=== PATIENT | male | born 1960 | race Caucasian/White ===

== ENCOUNTER 2018-05-04 05:54 | Observation (INO) | payer OTHER ==
[2018-05-04] MEDS ORDERED: LIDOCAINE 1% 2 ML INJ ID PRN (06:01)
[2018-05-04] MEDS ORDERED: LR 1,000 ML IV ONE (06:01)
[2018-05-04] MEDS ORDERED: BUPIVACAINE/EPI 0.25% 30 ML SDV ONE (06:40)
--- NOTE | 2018-05-04 07:00 | PDANEPAE ---
ANE Past Medical History - Cardiovascular History Hx Hypertension: No Hx Arrhythmias: No Hx Chest Pain: No Hx Coronary Artery / Peripheral Vascular Disease: No Hx CHF / Valvular Disease: No Hx Palpitations: No - Pulmonary History Hx COPD: No Hx Asthma/Reactive Airway Disease: No Hx Recent Upper Respiratory Infection: No Hx Oxygen in Use at Home: No Hx Sleep Apnea: No Sleep Apnea Screening Result - Last Documented: Positive Pulmonary History Comment: IAN TRIGGERS NO FORMAL DX - Neurologic History Hx Cerebrovascular Accident: No Hx Seizures: No Hx Dementia: No - Endocrine History Hx Diabetes: No - Renal History Hx Renal Disorders: No - Liver History Hx Hepatic Disorders: No - Neurological & Psychiatric Hx Hx Neurological and Psychiatric Disorders: No - Cancer History Hx Cancer: No - Congenital Disorder History Hx Congenital Disorders: No - GI History Hx Gastrointestinal Disorders: No - Other Health History Other Health History: WEARS GLASSES - Chronic Pain History Chronic Pain: No - Surgical History Prior Surgeries: RT KNEE ACL ANE Review of Systems Review of Systems: - Exercise capacity METS (RN): 4 METS ANE Patient History - Allergies Allergies/Adverse Reactions: midazolam [From Versed] Allergy (Verified 04/19/18 09:49) Vomiting - Home Medications Home Medications: NK [No Known Home Meds] 04/19/18 [Last Taken Unknown] - NPO status NPO Since - Liquids (Date): 05/03/18 NPO Since - Liquids (Time): 20:00 NPO Since - Solids (Date): 05/03/18 NPO Since - Solids (Time): 19:00 - Smoking Hx Smoking Status: Never smoked ANE Labs/Vital Signs - Vital Signs Blood Pressure: 120/88 Heart Rate: 68 Respiratory Rate: 18 O2 Sat (%): 92 Height: 167.64 cm Weight: 82.554 kg ANE Physical Exam - Airway Mallampati Score: Class 2 - ASA Status ASA Status: I ANE Anesthesia Plan Anesthesia Plan: general endotracheal anesthesia
[2018-05-04] MEDS ORDERED: fentaNYL 100 MCG/2 ML INJ ONE ×4 (07:10→09:54)
[2018-05-04] MEDS ORDERED: PROPOFOL 200 MG/20 ML VIAL ONE (07:10)
[2018-05-04] MEDS ORDERED: ceFAZolin 2 GM/DEXTROSE 100 ML IV ONE (07:18)
[2018-05-04] MEDS ORDERED: ONDANSETRON 4 MG/2 ML VIAL ONE (07:20)
[2018-05-04] MEDS ORDERED: ROCURONIUM 50 MG/5 ML VIAL ONE (07:20)
[2018-05-04] MEDS ORDERED: METOCLOPRAMIDE 10 MG/2 ML VIAL ONE (07:20)
[2018-05-04] MEDS ORDERED: DEXAMETHASONE 4 MG/ML VIAL ONE ×2 (07:20)
--- NOTE | 2018-05-04 07:20 | PDHPUP ---
History & Physical Update H&P update statement: This history and physical update is based on an assessment of the patient which was completed after admission or registration (within 24 hours), but prior to the surgery/procedure. H&P update: H&P reviewed & patient examined, no change in patient's condition since H&P completed
[2018-05-04] MEDS ORDERED: LABETALOL HCL 5 MG/ML 20 ML MDV ONE (07:58)
[2018-05-04] MEDS ORDERED: ONDANSETRON 4 MG/2 ML VIAL IVP PRN (08:43)
[2018-05-04] MEDS ORDERED: D5W LR 1,000 ML IV SCH (08:45)
--- NOTE | 2018-05-04 08:47 | POSTOPPROG ---
Post Op Note Date of Operation: 05/04/18 Surgeon: Ankush Borges Anesthesiologist: Marina Pre-op Diagnosis: IAN, tonsil hypertrophy Post-op Diagnosis: same Indication: IAN Procedure: Tonsillectomy, UPPP Findings: Larger tonsils and long soft palate Inf/Abcess present in the surg proc area at time of surgery?: No Depth: Deep Incisional (Fascial) EBL: Minimal Complications: none
[2018-05-04] MEDS ORDERED: PROMETHAZINE HCL 25 MG/ML INJ IVP PRN (08:50)
[2018-05-04] MEDS ORDERED: LR 500 ML IV PRN (08:50)
[2018-05-04] MEDS ORDERED: NALOXONE HCL 0.4 MG/ML INJ IVP PRN (08:50)
--- NOTE | 2018-05-04 08:51 | POSTANESTH ---
Post Anesthetic Evaluation Cardiovascular Status: Normal, Stable Respiratory Status: Normal, Stable Level of Consciousness/Mental Status: Can Participate in Eval Pain Control: Adequate, Prn Tx Ordered Nausea/Vomiting Control: Adequate, Prn Tx Ordered Complications Possibly Related to Anesthesia: None Noted
[2018-05-04] MEDS: fentaNYL 100 MCG/2 ML INJ IVP PRN ×4 (09:00→09:55)
[2018-05-04] MEDS: HYDROCOD/APAP 7.5/325 IN 15ML UDCUP PO PRN ×3 (10:40→19:40)
--- NOTE | 2018-05-04 18:15 | SOAPPROG ---
SOAP Progress Note Assessment/Plan: Assessment: pt with expected pain Plan: obs over night Likely dc in the am 05/04/18 18:14 Subjective: Pt complains of pain.. Objective: Vital Signs Temp Pulse Resp BP Pulse Ox 36.8 C 103 H 12 135/88 H 91 L 05/04/18 15:47 05/04/18 15:47 05/04/18 15:47 05/04/18 15:47 05/04/18 15:47 05/03/18 05/04/18 05/05/18 05:59 05:59 05:59 Intake Total 1050 Output Total 5 Balance 1045 No bleeding Pt speaking in full sentences. ICD10 Worksheet Patient Problems: Problems Problem Status Onset Sleep apnea Acute - ICD10 Problem Qualifiers (1) Sleep apnea
[2018-05-05] MEDS: HYDROCOD/APAP 7.5/325 IN 15ML UDCUP PO PRN ×3 (01:22→09:10)
--- NOTE | 2018-05-05 05:38 | GOP ---
DATE OF OPERATION: 05/04/2018 SURGEON: Ankush Borges MD ANESTHESIA: General. PREOPERATIVE DIAGNOSIS: 1. Obstructive sleep apnea syndrome. 2. Tonsillar hypertrophy. POSTOPERATIVE DIAGNOSIS: 1. Obstructive sleep apnea syndrome. 2. Tonsillar hypertrophy. PROCEDURE PERFORMED: 1. Tonsillectomy. 2. Uvulopalatopharyngoplasty. FINDINGS: Large tonsils. SPECIMENS: Tonsils and uvula. ESTIMATED BLOOD LOSS: Less than 50 mL. INDICATIONS: The patient is a 57-year-old man with significant tonsil hypertrophy. He has been unab le to tolerate CPAP and presents for tonsillectomy and in hopes of improving his tolerance to CPAP and potentially decreasing his severity of his sleep apnea syndrome. DESCRIPTION OF PROCEDURE: Patient was taken for the OR and positively identified, placed on monitors , and general anesthesia was induced. The table was then turned 90 degrees. He was placed in supine position with shoulder roll and head drape. The Jose Luis mouth gag used to visualize the oropharynx, a nd he was placed in suspension. Tonsillar tissues infiltrated with 1.5 cc of 0.25% Marcaine with 1:2 00,000 epinephrine. The tonsils were then sequentially excised with the Coblation wand at an ablatio n setting of 6 and a coag setting of 5. Intermittently, I used the regular electrical cautery when I got to the superior, middle, and inferior vascular pedicles. Following removal of the tonsils, the excess soft palate tissue was excised with a bipolar cautery. The nasal and oral mucosal surfaces we re re-approximated with interrupted 3-0 chromic suture. The gag was released for 7 minutes and reope hazel. There are no signs of any bleeding. A further 2 cc of local anesthetic was infiltrated at the site again to try and control postoperative pain in the initial time following surgery. The patient was then extubated and taken to postop care in good condition having tolerated the procedure well. COMPLICATIONS: None. /[id number]/MODL
[2018-05-05] MEDS ORDERED: DEXAMETHASONE 4 MG/ML VIAL IVP ONE (07:00)
[2018-05-05 07:54] VITALS: BP 138/77
--- NOTE | 2018-05-05 10:30 | PDDCSUM ---
Discharge Summary Discharge Summary: Patient doing well s/p UPP. Pain controlled AFVSS Okay for d/c Follow up in clinic in 2 weeks.
== END 2018-05-05 10:58 | disposition home or self-care (01) ==
LOC: F3N 05:54 → F3E 10:28
PROVIDERS: ADMIT Otolaryngology; ATTEND Otolaryngology
DX: J35.1 Hypertrophy of tonsils (principal); G47.33 Obstructive sleep apnea (adult) (pediatric)
CPT/HCPCS: 42145; G0378; J0690; J1100; J2270; J2405; J2704; J2765; J3010